=== PATIENT | female | born 1995 | race Hispanic/Latino ===

== ENCOUNTER 2018-03-09 23:07 | Emergency (ER) | payer SELFPAY ==
[2018-03-10] MEDS ORDERED: ACETAMINOPHEN 500 MG TAB ONE (00:02)
[2018-03-10 00:45] LABS: Absolute Lymphocytes (CBC) 2.8 K/uL (0.7-4.9); Absolute Monocytes 0.5 K/uL (0.1-1.3); Absolute Neutrophil 3.3 K/uL (1.8-8.0); Basophils % 0.5 % (0-1.3); Hematocrit 40.5 % (36.0-45.0); Lymphocytes % 40.5 % (15.3-44.8); MCH 27.9 pg (27.0-35.0); MCV 85.1 fL (80-100); MPV 8.2 fL (7.6-11.3); Monocytes % 7.6 % (3.3-12.3); RBC Red Blood Cell Count 4.76 M/uL (3.86-4.86)
[2018-03-10 01:06] LABS: BUN Blood Urea Nitrogen 9 mg/dL (7-18); Bicarbonate 27 mmol/L (21-32); Glucose Level 93 mg/dL (74-106); HCG, Quantitative 536 mIU/mL (1-3); Sodium Level 140 mmol/L (136-145)
[2018-03-10 02:10] LABS: Urine Blood NEGATIVE (NEG); Urine Glucose NEGATIVE (NEG); Urine Protein NEGATIVE (NEG)
[2018-03-10 02:14] LABS: Urine Bacteria <20 /HPF (<20); Urine Culture Reflex Order NOT NEEDED; Urine RBC NONE SEEN /HPF (NONE SEEN)
--- NOTE | 2018-03-10 03:04 | ER ---
Nurse's Notes [facility] Name: Alona Redding Age: 23 yrs Sex: Female : 1995 Arrival Date: 03/09/2018 Time: 23:21 Bed 18 Private MD: Diagnosis: Left Adnexa Corpus Luteum Cyst;Left pelvic pain;positive Presentation: 03/09 23:32 Presenting complaint: Patient states: "I had this sharp pain in my stomach on Monday bs1 and I went to the clinic today and they told me I was and I told them I was having this pain and they told me if it continues to go to the ER, the pain is still there and its only on the left side.". Transition of care: patient was not received from another setting of care. Onset of symptoms was March 04, 2018. Risk Assessment: Do you want to hurt yourself or someone else? Patient reports no desire to harm self or others. Initial Sepsis Screen: Does the patient meet any 2 criteria? No. Patient's initial sepsis screen is negative. Does the patient have a suspected source of infection? No. Patient's initial sepsis screen is negative. Care prior to arrival: None. 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 - Social history:: Smoking status: Patient/guardian denies using tobacco. - Ebola Screening: : Patient negative for fever greater than or equal to 101.5 degrees Fahrenheit, and additional compatible Ebola Virus Disease symptoms Patient denies exposure to infectious person. - Family history:: not pertinent. - Hospitalizations: : No recent hospitalization is reported. Screenin/30 00:49 Abuse screen: Denies threats or abuse. Denies injuries from another. Nutritional bs1 screening: No deficits noted. Tuberculosis screening: No symptoms or risk factors identified. Fall Risk None identified. Assessment: 03/09 23:35 General: Appears in no apparent distress. uncomfortable, well groomed, well developed, bs1 Behavior is calm, cooperative, appropriate for age. Pain: Complains of pain in left lower abdomen Pain does not radiate. Neuro: Level of Consciousness is awake, alert, obeys commands, Oriented to person, place, time, situation, Appropriate for age. Cardiovascular: Denies chest pain, shortness of breath, Heart tones S1 S2 present Capillary refill < 3 seconds Patient's skin is warm and dry. Respiratory: Airway is patent Trachea midline Respiratory effort is even, unlabored, Respiratory pattern is regular, symmetrical, Breath sounds are clear bilaterally. GI: Abdomen is round non-distended, Bowel sounds present X 4 quads. Abdomen is tender to palpation in left lower quadrant Reports lower abdominal pain, nausea. GI: Reports Patient reports sharp abdominal pain. : No signs and/or symptoms were reported regarding the genitourinary system. EENT: No signs and/or symptoms were reported regarding the EENT system. Derm: Skin is intact, Skin is pink, warm \\T\\ dry. normal. Musculoskeletal: Circulation, motion, and sensation intact. Capillary refill < 3 seconds, Range of motion: intact in all extremities. 03/10 00:45 Reassessment: Patient appears in no apparent distress at this time. Patient and/or bs1 family updated on plan of care and expected duration. Pain level reassessed. Patient is alert, oriented x 3, equal unlabored respirations, skin warm/dry/pink. Family at bedside. 02:00 Reassessment: Patient appears in no apparent distress at this time. Patient and/or bs1 family updated on plan of care and expected duration. Pain level reassessed. Patient is alert, oriented x 3, equal unlabored respirations, skin warm/dry/pink. Pending results. No further needs at this time. 03:10 Reassessment: Patient appears in no apparent distress at this time. Patient and/or bs1 family updated on plan of care and expected duration. Pain level reassessed. Patient is alert, oriented x 3, equal unlabored respirations, skin warm/dry/pink. Patient denies pain at this time. Vital Signs: 03/09 23:35 BP 103 / 58; Pulse 78; Resp 18; Temp 98(O); Pulse Ox 100% on R/A; Weight 62.14 kg; bs1 Height 5 ft. 3 in. (160.02 cm); Pain 7/10; 03/10 00:35 BP 137 / 74; Pulse 74; Resp 17 S; Pulse Ox 100% on R/A; bs1 01:35 BP 115 / 58; Pulse 63; Resp 16 S; Pulse Ox 100% on R/A; bs1 02:30 BP 106 / 65; Pulse 63; Resp 16 S; Pulse Ox 100% on R/A; bs1 03:25 BP 121 / 80; Pulse 79; Resp 16 S; Temp 98; Pulse Ox 100% on R/A; Pain 0/10; bs1 03/09 23:35 Body Mass Index 24.27 (62.14 kg, 160.02 cm) bs1 ED Course: 03/09 23:21 Patient arrived in ED. es 23:32 Maida Cooper, RN is Primary Nurse. bs1 23:34 Triage completed. bs1 23:40 Torey Giraldo MD is Attending Physician. [place] 03/10 00:19 Inserted saline lock: 22 gauge in right antecubital area, using aseptic technique. bs1 Blood collected. 00:49 Patient has correct armband on for positive identification. Placed in gown. Bed in low bs1 position. Call light in reach. Side rails up X 1. Pulse ox on. NIBP on. 00:49 Arm band placed on left wrist. bs1 01:28 Transvaginal OB In Process Unspecified. EDGA 01:28 Ultrasound completed. Patient tolerated well. aa4 03:02 Claudia Pope MD is Referral Physician. wa 03:26 No provider procedures requiring assistance completed. IV discontinued, bleeding bs1 controlled, No redness/swelling at site. Pressure dressing applied. Administered Medications: 00:02 Drug: Tylenol 1000 mg Route: PO; bs1 00:47 Follow up: Response: No adverse reaction bs1 Outcome: 03:03 Discharge ordered by . wa 03:26 Discharged to home ambulatory, with significant other. bs1 03:26 Condition: stable 03:26 Discharge instructions given to patient, Instructed on discharge instructions, follow up and referral plans. Demonstrated understanding of instructions, follow-up care. 03:29 Patient left the ED. bs1 Signatures: Dispatcher [employer] EDGA Leia Arzate Amanda aa4 Torey Giraldo MD MD wa Salazar, Brittany, RN RN bs1
--- NOTE | 2018-03-10 03:04 | EDPHYS ---
Physician Documentation [facility] Name: Alona Redding Age: 23 yrs Sex: Female : 1995 Arrival Date: 03/09/2018 Time: 23:21 Bed 18 Private MD: ED Physician Torey Giraldo HPI: 03/10 02:12 This 23 yrs old Female presents to ER via Ambulatory with complaints of wa Abdominal Pain, 5 weks preg. 02:12 The patient presents with abdominal pain L side abd pain. states found out she was wa today. wants checked as L side pelvic pain that radiates to the L pelvis region. Home preg positive. Onset: The symptoms/episode began/occurred yesterday. The symptoms do not radiate. Associated signs and symptoms: Pertinent negatives: nausea and vomiting, constipation, diarrhea, dysuria, fever, vaginal discharge. The symptoms are described as achy. Modifying factors: The symptoms are alleviated by nothing, the symptoms are aggravated by nothing. Severity of pain: At its worst the pain was moderate in the emergency department the pain is unchanged. The patient has not experienced similar symptoms in the past. The patient has not recently seen a physician. 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 - Social history:: Smoking status: Patient/guardian denies using tobacco. - Ebola Screening: : Patient negative for fever greater than or equal to 101.5 degrees Fahrenheit, and additional compatible Ebola Virus Disease symptoms Patient denies exposure to infectious person. - Family history:: not pertinent. - Hospitalizations: : No recent hospitalization is reported. ROS: 03/10 02:38 Constitutional: Negative for fever, chills, and weight loss, Eyes: Negative for injury, wa pain, redness, and discharge, ENT: Negative for injury, pain, and discharge, Neck: Negative for injury, pain, and swelling, Cardiovascular: Negative for chest pain, palpitations, and edema, Respiratory: Negative for shortness of breath, cough, wheezing, and pleuritic chest pain, Back: Negative for injury and pain, MS/Extremity: Negative for injury and deformity, Skin: Negative for injury, rash, and discoloration, Neuro: Negative for headache, weakness, numbness, tingling, and seizure, Psych: Negative for depression, anxiety, suicide ideation, homicidal ideation, and hallucinations. Abdomen/GI: Positive for abdominal pain, Negative for nausea and vomiting. : Positive for pelvic pain, of the left lower quadrant. Exam: 02:39 Constitutional: This is a well developed, well nourished patient who is awake, alert, wa and in no acute distress. Head/Face: Normocephalic, atraumatic. Eyes: Pupils equal round and reactive to light, extra-ocular motions intact. Lids and lashes normal. Conjunctiva and sclera are non-icteric and not injected. Cornea within normal limits. Periorbital areas with no swelling, redness, or edema. ENT: Nares patent. No nasal discharge, no septal abnormalities noted. Tympanic membranes are normal and external auditory canals are clear. Oropharynx with no redness, swelling, or masses, exudates, or evidence of obstruction, uvula midline. Mucous membranes moist. Neck: Trachea midline, no thyromegaly or masses palpated, and no cervical lymphadenopathy. Supple, full range of motion without nuchal rigidity, or vertebral point tenderness. No Meningismus. Cardiovascular: Regular rate and rhythm with a normal S1 and S2. No gallops, murmurs, or rubs. Normal PMI, no JVD. No pulse deficits. Respiratory: Lungs have equal breath sounds bilaterally, clear to auscultation and percussion. No rales, rhonchi or wheezes noted. No increased work of breathing, no retractions or nasal flaring. Back: No spinal tenderness. No costovertebral tenderness. Full range of motion. Skin: Warm, dry with normal turgor. Normal color with no rashes, no lesions, and no evidence of cellulitis. MS/ Extremity: Pulses equal, no cyanosis. Neurovascular intact. Full, normal range of motion. Neuro: Awake and alert, GCS 15, oriented to person, place, time, and situation. Cranial nerves II-XII grossly intact. Motor strength 5/5 in all extremities. Sensory grossly intact. Cerebellar exam normal. Normal gait. Psych: Awake, alert, with orientation to person, place and time. Behavior, mood, and affect are within normal limits. 02:39 Abdomen/GI: Inspection: abdomen appears normal, Bowel sounds: normal, in all quadrants, Palpation: soft, mild abdominal tenderness, in the left lower quadrant. Vital Signs: 03/09 23:35 BP 103 / 58; Pulse 78; Resp 18; Temp 98(O); Pulse Ox 100% on R/A; Weight 62.14 kg; bs1 Height 5 ft. 3 in. (160.02 cm); Pain 7/10; 03/10 00:35 BP 137 / 74; Pulse 74; Resp 17 S; Pulse Ox 100% on R/A; bs1 01:35 BP 115 / 58; Pulse 63; Resp 16 S; Pulse Ox 100% on R/A; bs1 02:30 BP 106 / 65; Pulse 63; Resp 16 S; Pulse Ox 100% on R/A; bs1 03:25 BP 121 / 80; Pulse 79; Resp 16 S; Temp 98; Pulse Ox 100% on R/A; Pain 0/10; bs1 03/09 23:35 Body Mass Index 24.27 (62.14 kg, 160.02 cm) bs1 MDM: 03/09 23:40 Patient medically screened. md 03/10 02:40 Differential diagnosis: positive home preg w/ L adnexal pain. r/o ectopic. md 02:58 Data reviewed: vital signs, nurses notes, lab test result(s). Test interpretation: by md ED physician or midlevel provider: [facility] [place]. corpus luteum cyst L ovary. no gestational sac. ABO: Bpos. Response to treatment: the patient's symptoms have markedly improved after treatment. ED course: will d/c with close f/u. needs 48 hour eval for viability. pain L adnexa may be related to corpus luteum cyst. 03/09 23:57 Order name: Abo/rh Typing; Complete Time: 02:11 03/09 23:57 Order name: Basic Metabolic Panel; Complete Time: 02:11 03/09 23:57 Order name: CBC with Diff; Complete Time: 02:11 03/09 23:57 Order name: Quantitative Hcg; Complete Time: 02:11 03/09 23:57 Order name: Urine Microscopic Only; Complete Time: 02:41 03/09 23:59 Order name: Urine Dipstick--Ancillary (enter results) 03/09 23:57 Order name: Urine Test (obtain specimen); Complete Time: 23:59 md 03/09 23:57 Order name: IV Saline Lock; Complete Time: 00:47 md 03/09 23:57 Order name: Labs collected and sent; Complete Time: 00:50 md 03/09 23:57 Order name: NPO; Complete Time: 23:58 md 03/09 23:59 Order name: Urine --Ancillary (enter results) 03/10 01:20 Order name: Transvaginal OB [facility] 03/09 23:57 Order name: Urine Dipstick-Ancillary (obtain specimen); Complete Time: 23:59 md Administered Medications: 00:02 Drug: Tylenol 1000 mg Route: PO; bs1 00:47 Follow up: Response: No adverse reaction bs1 Disposition: 03/10/18 03:03 Discharged to Home. Impression: Left Adnexa Corpus Luteum Cyst, Left pelvic pain, positive . - Condition is Stable. - Discharge Instructions: Pelvic Pain, Female, [id number], Ovarian Cyst, [id number]-[id number]. - Medication Reconciliation Form, Thank You Letter, Antibiotic Education, Prescription Opioid Use form. - Follow up: Claudia Pope MD; When: 48 Hours; Reason: Recheck today's complaints. - Problem is new. - Symptoms have improved. - Notes: follow up with the OB docyor within 48 hours to check for appropriate doubling of hormone which may signify normal . return to ER for severe pain and or bleedign immediately. take tylenol as needed for pain Signatures: Dispatcher [employer] [facility] Torey Giraldo MD MD wa Salazar, Brittany, RN RN bs1 Corrections: (The following items were deleted from the chart) 01:20 03/09 23:57 OB Complete+.ANALY ordered. [facility] 03/10 03:29 03:03 03/10/2018 03:03 Discharged to Home. Impression: Left Adnexa Corpus Luteum Cyst; bs1 Left pelvic pain; positive . Condition is Stable. Forms are Medication Reconciliation Form, Thank You Letter, Antibiotic Education, Prescription Opioid Use. Follow up: Claudia Pope; When: 48 Hours; Reason: Recheck today's complaints. Problem is new. Symptoms have improved. wa
[2018-03-10 03:43] VITALS: TEMP 98; O2SAT 100
[2018-03-10 03:47] VITALS: BP 121/80
--- NOTE | 2018-03-10 09:35 | RAD REPORT ---
EXAM DESCRIPTION: US - Transvaginal OB - 03/10/2018 1:28 am CLINICAL HISTORY: Left-sided pelvic pain, beta HCG 536 COMPARISON: None. FINDINGS: Tip of the cervix is not optimally visualized. Uterus is in a retroflexed or retroverted p osition measuring 8.5 x 4.9 x 6.3 cm. A 4.4 centimeter oval hypoechoic mass lower uterus is most like ly an incidental fibroid. . No intrauterine gestational sac or sac remnant identifiable. Endometrium is 15 mm in thickness. Endometrium-myometrium interface is preserved. Trace amount of free fluid in the cul-de-sac is within physiologic limits. Right ovary is 3.1 x 1.1 x 0.9 cm left ovary is 3.5 x 1.5 x 1.7 cm. Doppler evaluation shows normal blood flow within the ovari an stroma. No suspicious ovarian or adnexal finding. IMPRESSION: No intrauterine gestational sac or sac remnant identifiable. No adnexal abnormality to suspect ectopic . Follow-up sonography could be performed if there is continued pain or bleeding and evidence for progr essive . Approximately 4.4 centimeter mass at the lower uterus is probably a fibroid. This can be monitored on subsequent imaging as well.
== END 2018-03-10 03:29 | disposition home or self-care (01) ==
LOC: ER 23:07
DX: O26.891 Other specified pregnancy related conditions, first trimester (principal); N83.12 Corpus luteum cyst of left ovary; Z3A.01 Less than 8 weeks gestation of pregnancy
CPT/HCPCS: 36415; 76817; 80048; 81003; 81015; 81025; 84702; 85025; 86900; 86901; 99284

== ENCOUNTER 2018-05-21 04:24 | Emergency (ER) | payer BC ==
[2018-05-21] MEDS ORDERED: NA CHLORIDE 0.9% 1,000 ML ONE (05:19)
[2018-05-21 05:47] LABS: Urine Blood NEGATIVE (NEG); Urine Glucose NEGATIVE (NEG); Urine Protein NEGATIVE (NEG); Urine Specific Gravity 1.015 (1.005-1.030)
[2018-05-21 06:00] LABS: Absolute Lymphocytes (CBC) 1.7 K/uL (0.7-4.9); Absolute Monocytes 0.7 K/uL (0.1-1.3); Basophils % 0.4 % (0-1.3); Eosinophils % 3.4 % (0-4.4); Hematocrit 37.1 % (36.0-45.0); Lymphocytes % 17.6 % (15.3-44.8); MCH 29.4 pg (27.0-35.0); MCV 84.4 fL (80-100); Monocytes % 6.9 % (3.3-12.3)
[2018-05-21 06:14] LABS: ALT/SGPT 15 U/L (12-78); AST/SGOT 13 U/L (15-37); Albumin 3.1 g/dL (3.4-5.0); Alkaline Phosphatase 62 U/L (45-117); Amylase Level 46 U/L (25-115); BUN Blood Urea Nitrogen 5 mg/dL (7-18); Bicarbonate 24 mmol/L (21-32); Bilirubin Direct < 0.1 mg/dL (0-0.2); Bilirubin Total 0.3 mg/dL (0.2-1.0); Glucose Level 94 mg/dL (74-106); Lipase 175 U/L (73-393); Potassium 3.6 mmol/L (3.5-5.1); Protein, Total 7.7 g/dL (6.4-8.2); Sodium Level 136 mmol/L (136-145)
[2018-05-21 06:16] LABS: Urine Amorphous Sediment 3+ /HPF (NONE SEEN); Urine Bacteria <20 /HPF (<20); Urine Culture Reflex Order NOT NEEDED; Urine RBC NONE SEEN /HPF (NONE SEEN)
--- NOTE | 2018-05-21 07:07 | RAD REPORT ---
EXAM DESCRIPTION: US - OB Limited - 05/21/2018 6:56 am CLINICAL HISTORY: , abdominal and pelvic pain COMPARISON: Ultrasound March 10 FINDINGS: A single intrauterine gestation is identified. [place]-rump length measurement corresponds t o 15 weeks 6 day age. Anatomic assessment is limited at this age. No gross anatomic abnormality seen. Cervical canal is long and closed. heart rate is 155 BPM. Within the endometrial cavity there is no hematoma, mass or suspicious finding. In the mid to lower anterior right uterus there is an exophytic solid hypoechoic mass. This measures 6 cm in maximum dimension on the current examination. The mass was measured 4.4 cm on the February examin ation. This is most likely a uterine fibroid that has responded to or mounds. No other maternal adnexal mass or abnormality seen. Ovaries are not well defined. No free fluid in th e pelvis. IMPRESSION: Single 15 week 6 day IUP with normal heart rate. No gross anatomic abnormality at this e costa age. Anterior exophytic uterine mass 6.1 cm in size has increased from 4.4 cm seen on the February study. This is most likely a uterine fibroid that has grown from hormone stimulation.
--- NOTE | 2018-05-21 07:10 | ER ---
Nurse's Notes [facility] Name: Alona Humphries Age: 23 yrs Sex: Female : 1995 Arrival Date: 05/21/2018 Time: 04:27 Bed 7 Private MD: Diagnosis: Right lower quadrant pain. 2 nd Trimester . Uterine fibroid Presentation: 05/21 04:37 Presenting complaint: Patient states: RLQ PAIN INTERMITTENT x2 MONTHS. Transition of bp care: patient was not received from another setting of care. Onset of symptoms was May 20, 2018 at 23:00. Risk Assessment: Do you want to hurt yourself or someone else? Patient reports no desire to harm self or others. Initial Sepsis Screen: Does the patient meet any 2 criteria? No. Patient's initial sepsis screen is negative. Does the patient have a suspected source of infection? No. Patient's initial sepsis screen is negative. Care prior to arrival: None. 04:37 Method Of Arrival: Ambulatory bp 04:37 Acuity: PETE 3 bp Triage Assessment: 04:39 General: Appears in no apparent distress. uncomfortable, Behavior is calm, cooperative, bp appropriate for age. Pain: Complains of pain in right lower quadrant. EENT: No deficits noted. Neuro: Level of Consciousness is awake, alert, obeys commands, Oriented to person, place, time, situation, Appropriate for age. Cardiovascular: No deficits noted. Respiratory: Airway is patent Respiratory effort is even, unlabored, Respiratory pattern is regular, symmetrical. GI: Patient currently denies diarrhea, nausea, vomiting. : Reports burning with urination. Derm: No deficits noted. Musculoskeletal: Circulation, motion, and sensation intact. Range of motion: intact in all extremities. 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 - Social history:: Smoking status: Patient/guardian denies using tobacco. - Ebola Screening: : Patient negative for fever greater than or equal to 101.5 degrees Fahrenheit, and additional compatible Ebola Virus Disease symptoms Patient denies exposure to infectious person Patient denies travel to an Ebola-affected area in the 21 days before illness onset No symptoms or risks identified at this time. Screenin:42 Abuse screen: Denies threats or abuse. Denies injuries from another. Nutritional bp screening: No deficits noted. Tuberculosis screening: No symptoms or risk factors identified. Fall Risk None identified. Assessment: 04:42 General: SEE TRIAGE ASSESSMENT. 23YO HF, 16WK , C/O INTERMITTENT RLQ PAIN x2 bp MONTHS, WORSE WITH URINATION. DENIES NAUSEA, VOMITING, DIARRHEA OR VAGINAL BLEEDING. 06:00 Reassessment: UNABLE TO OBTAIN FHT, NOTIFIED. U/S PENDING. bp 07:22 Reassessment: Patient appears in no apparent distress at this time. Patient and/or tw2 family updated on plan of care and expected duration. Pain level reassessed. Patient is alert, oriented x 3, equal unlabored respirations, skin warm/dry/pink. 07:22 GI: Bowel sounds present X 4 quads. Abd is soft. tw2 Vital Signs: 04:39 BP 106 / 69; Pulse 90; Resp 16; Temp 97.2; Pulse Ox 98% ; Weight 61.69 kg; Height 5 ft. bp 3 in. (160.02 cm); 05:30 BP 104 / 68; Pulse 78; Resp 14; Pulse Ox 100% ; bp 06:30 BP 110 / 65; Pulse 81; Resp 14; Pulse Ox 100% ; bp 04:39 Body Mass Index 24.09 (61.69 kg, 160.02 cm) bp ED Course: 04:27 Patient arrived in ED. es 04:37 Jeffrey Tyson, RN is Primary Nurse. bp 04:38 Triage completed. bp 04:39 Arm band placed on. bp 04:42 Patient has correct armband on for positive identification. Bed in low position. Call bp light in reach. Side rails up X2. Adult w/ patient. 05:00 Joshua Khan MD is Attending Physician. pkl 05:40 Inserted saline lock: 20 gauge in right forearm, using aseptic technique. Blood bp collected. 06:55 Ultrasound completed. Patient tolerated well. aa4 06:57 OB Limited In Process Unspecified. EDMS 07:07 Claudia Pope MD is Referral Physician. pkl 07:22 No provider procedures requiring assistance completed. IV discontinued, intact, tw2 bleeding controlled, No redness/swelling at site. Pressure dressing applied. Administered Medications: 05:13 CANCELLED (Patient Refused): NS 0.9% 1000 ml IV at 1000 ml once pkl 05:30 Drug: NS 0.9% 1000 ml Route: IV; Rate: 1000 ml; Site: right forearm; bp 07:00 Follow up: Response: No adverse reaction; IV Status: Completed infusion; IV Intake: tw2 1000ml 06:11 Drug: NS 0.9% 1000 ml Route: IV; Rate: 100 ml/hr; Site: right forearm; bp 07:11 Follow up: Response: No adverse reaction; IV Status: Completed infusion; IV Intake: tw2 1000ml Intake: 07:00 IV: 1000ml; Total: 1000ml. tw2 07:11 IV: 1000ml; Total: 2000ml. tw2 Outcome: 07:09 Discharge ordered by . pknikita 07:22 Discharged to home ambulatory. tw2 07:22 Condition: stable 07:22 Discharge instructions given to patient, Instructed on discharge instructions, follow up and referral plans. Demonstrated understanding of instructions, follow-up care. 07:23 Patient left the ED. tw2 Signatures: Dispatcher [employer] Joshua Steven MD MD pkl Leia Arzate Amanda aa4 Daniella Lewis RN RN tw2 Jeffrey Tyson RN RN bp
--- NOTE | 2018-05-21 07:10 | EDPHYS ---
Physician Documentation [facility] Name: Alona Humphries Age: 23 yrs Sex: Female : 1995 Arrival Date: 05/21/2018 Time: 04:27 Bed 7 Private MD: ED Physician Joshua Khan HPI: 05/21 05:14 This 23 yrs old Female presents to ER via Ambulatory with complaints of pkl Abdominal Pain, 5 MONTHS PREG. 05:14 The patient presents with abdominal pain right lower quadrant. Onset: The pkl symptoms/episode began/occurred 2 day(s) ago, and became worse last night. Associated signs and symptoms: Pertinent positives: nausea. [employer]: 04:39 LMP 01/30/2018 bp Historical: - Allergies: 04:39 No Known Allergies; bp - Home Meds: 04:39 Vitamin Oral tab 1 tab once daily [Active]; bp - PMHx: 04:39 GALLSTONES; UTERINE FIBROIDS; bp - Immunization history:: Adult Immunizations up to date. - Social history:: Smoking status: Patient/guardian denies using tobacco. - Ebola Screening: : Patient negative for fever greater than or equal to 101.5 degrees Fahrenheit, and additional compatible Ebola Virus Disease symptoms Patient denies exposure to infectious person Patient denies travel to an Ebola-affected area in the 21 days before illness onset No symptoms or risks identified at this time. ROS: 05:14 Eyes: Negative for injury, pain, redness, and discharge, ENT: Negative for injury, pkl pain, and discharge, Neck: Negative for injury, pain, and swelling, Cardiovascular: Negative for chest pain, palpitations, and edema, Respiratory: Negative for shortness of breath, cough, wheezing, and pleuritic chest pain. 05:14 Abdomen/GI: Positive for abdominal pain, nausea, of the right lower quadrant. 05:14 Back: Negative for acute changes. 05:14 : Positive for urinary symptoms, burning with urination. 05:14 MS/extremity: Negative for acute changes. 05:14 Skin: Negative for rash. 05:14 Neuro: Negative for altered mental status. Exam: 05:14 Head/Face: Normocephalic, atraumatic. Eyes: Pupils equal round and reactive to light, pkl extra-ocular motions intact. Lids and lashes normal. Conjunctiva and sclera are non-icteric and not injected. Cornea within normal limits. Periorbital areas with no swelling, redness, or edema. ENT: Nares patent. No nasal discharge, no septal abnormalities noted. Tympanic membranes are normal and external auditory canals are clear. Oropharynx with no redness, swelling, or masses, exudates, or evidence of obstruction, uvula midline. Mucous membranes moist. Neck: Trachea midline, no thyromegaly or masses palpated, and no cervical lymphadenopathy. Supple, full range of motion without nuchal rigidity, or vertebral point tenderness. No Meningismus. Chest/axilla: Normal chest wall appearance and motion. Nontender with no deformity. No lesions are appreciated. Cardiovascular: Regular rate and rhythm with a normal S1 and S2. No gallops, murmurs, or rubs. Normal PMI, no JVD. No pulse deficits. Respiratory: Lungs have equal breath sounds bilaterally, clear to auscultation and percussion. No rales, rhonchi or wheezes noted. No increased work of breathing, no retractions or nasal flaring. 05:14 Abdomen/GI: Inspection: gravid appearance, is noted, Bowel sounds: normal, Palpation: moderate abdominal tenderness, in the right lower quadrant. 05:14 Back: Exam negative for acute changes. 05:14 : Exam negative for acute changes. 05:14 Musculoskeletal/extremity: Exam is negative for acute changes. 05:14 Skin: Exam negative for rash. 05:14 Neuro: Orientation: is normal, Mentation: is normal, Cranial nerves: grossly normal, Motor: is normal. Vital Signs: 04:39 BP 106 / 69; Pulse 90; Resp 16; Temp 97.2; Pulse Ox 98% ; Weight 61.69 kg; Height 5 ft. bp 3 in. (160.02 cm); 05:30 BP 104 / 68; Pulse 78; Resp 14; Pulse Ox 100% ; bp 06:30 BP 110 / 65; Pulse 81; Resp 14; Pulse Ox 100% ; bp 04:39 Body Mass Index 24.09 (61.69 kg, 160.02 cm) bp MDM: 05:00 Patient medically screened. pkl 07:04 Data reviewed: vital signs, nurses notes, lab test result(s), radiologic studies, pkl ultrasound. 07:04 ED course: Talked to Dr. Franklin, will see patient in her office today at 2 P.M. pkl Discussed lab. and US with Dr. Franklin and patient.. 05/21 05:11 Order name: Amylase, Serum; Complete Time: 06:15 pkl 05/21 05:11 Order name: Basic Metabolic Panel; Complete Time: 06:15 pkl 05/21 05:11 Order name: CBC with Diff; Complete Time: 06:04 pkl 05/21 05:11 Order name: Creatinine for Radiology; Complete Time: 06:12 pkl 05/21 05:11 Order name: Hepatic Function; Complete Time: 06:15 pkl 05/21 05:11 Order name: Lipase; Complete Time: 06:15 pkl 05/21 05:11 Order name: Heart Tones; Complete Time: 06:06 pkl 05/21 05:11 Order name: Urine Microscopic Only; Complete Time: 06:44 pkl 05/21 05:45 Order name: Urine Dipstick--Ancillary (enter results); Complete Time: 05:49 mw2 05/21 06:56 Order name: OB Limited EDMS 05/21 05:11 Order name: IV Saline Lock; Complete Time: 06:06 pkl 05/21 05:11 Order name: Labs collected and sent; Complete Time: 06:06 pkl 05/21 05:11 Order name: Urine Dipstick-Ancillary (obtain specimen); Complete Time: 06:06 pkl Administered Medications: 05:13 CANCELLED (Patient Refused): NS 0.9% 1000 ml IV at 1000 ml once pkl 05:30 Drug: NS 0.9% 1000 ml Route: IV; Rate: 1000 ml; Site: right forearm; bp 07:00 Follow up: Response: No adverse reaction; IV Status: Completed infusion; IV Intake: tw2 1000ml 06:11 Drug: NS 0.9% 1000 ml Route: IV; Rate: 100 ml/hr; Site: right forearm; bp 07:11 Follow up: Response: No adverse reaction; IV Status: Completed infusion; IV Intake: tw2 1000ml Disposition: 05/21/18 07:09 Discharged to Home. Impression: Right lower quadrant pain. 2 nd Trimester . Uterine fibroid. - Condition is Stable. - Medication Reconciliation Form, Thank You Letter, Antibiotic Education, Prescription Opioid Use, Family Work Release form. - Follow up: Claudia Pope MD; When: Today; Reason: Re-evaluation by your physician. - Problem is new. - Symptoms are unchanged. Signatures: Dispatcher [employer] [facility] Joshua Khan MD MD pkl Daniella Lewis, RN RN tw2 Jeffrey Tyson, RN RN bp Corrections: (The following items were deleted from the chart) 05:13 05:11 NS 0.9% 1000 ml IV at 1000 ml once ordered. pkl pkl 06:57 06:04 Pelvis Complete+US.RAD.BRZ ordered. [facility] EDDC 07:23 07:09 05/21/2018 07:09 Discharged to Home. Impression: Right lower quadrant pain. 2 nd tw2 Trimester . Uterine fibroid. Condition is Stable. Forms are Medication Reconciliation Form, Thank You Letter, Antibiotic Education, Prescription Opioid Use. Follow up: Claudia Pope; When: Today; Reason: Re-evaluation by your physician. Problem is new. Symptoms are unchanged. pkl
[2018-05-21 07:29] VITALS: TEMP 97.2
[2018-05-21 07:30] VITALS: O2SAT 100
[2018-05-21 07:32] VITALS: BP 110/65
== END 2018-05-21 07:23 | disposition home or self-care (01) ==
LOC: ER 04:24
DX: O34.12 Maternal care for benign tumor of corpus uteri, second trimester (principal); D25.9 Leiomyoma of uterus, unspecified; R10.31 Right lower quadrant pain
CPT/HCPCS: 36415; 76815; 80048; 80076; 81003; 81015; 82150; 83690; 85025; 96360; 96361; 99284; J7030

== ENCOUNTER 2018-10-31 06:01 | Inpatient (IN) | payer BC ==
[2018-10-31] MEDS ORDERED: Ringers Lactate 1,000 ML IV PRN (06:25)
[2018-10-31] MEDS ORDERED: CARBOPROST TROME 250 MCG/ML IM PRN (06:25)
[2018-10-31] MEDS ORDERED: METHYLERGONOVINE 0.2MG/ML AMP IM PRN (06:25)
[2018-10-31 06:57] LABS: RPR Titer ND
[2018-10-31] MEDS ORDERED: Ringers Lactate 1,000 ML IV SCH (07:00)
[2018-10-31] MEDS ORDERED: OXYTOCIN/LR 20 UNIT/1,000 ML BAG IV SCH (07:00)
[2018-10-31 07:08] LABS: Absolute Lymphocytes (CBC) 1.8 K/uL (0.7-4.9); Absolute Monocytes 0.4 K/uL (0.1-1.3); Absolute Neutrophil 3.6 K/uL (1.8-8.0); Basophils % 0.6 % (0-1.3); Eosinophils % 2.2 % (0-4.4); Hematocrit 39.9 % (36.0-45.0); Lymphocytes % 29.7 % (15.3-44.8); MPV 9.4 fL (7.6-11.3); Monocytes % 7.3 % (3.3-12.3); RBC Red Blood Cell Count 4.61 M/uL (3.86-4.86)
[2018-10-31 07:16] VITALS: BMI 30.4
[2018-10-31 08:27] LABS: Urine Appearance CLEAR; Urine Bilirubin NEGATIVE (NEG); Urine Blood NEGATIVE (NEG); Urine Color YELLOW; Urine Glucose NEGATIVE (NEG); Urine Protein NEGATIVE (NEG); Urine Specific Gravity 1.015 (1.005-1.030); Urine Urobilinogen 0.2 mg/dL (0.2-1.0); Urine pH 7.5 (5.0-7.0)
[2018-10-31 08:53] LABS: Urine Bacteria <20 /HPF (<20); Urine Culture Reflex Order REFLEXED; Urine RBC <5 /HPF (NONE SEEN)
[2018-10-31] MEDS ORDERED: FENTANYL CITR 100 MCG/2 ML IV ONE (10:36)
[2018-10-31] MEDS ORDERED: BUPIVACAINE 0.25% PF 10 ML VIAL IV ONE (10:37)
[2018-10-31] MEDS ORDERED: FENTANYL/BUPIVACAINE/NS/PF 200 MCG/100 ML BAG EP ONE (10:37)
[2018-10-31] MEDS ORDERED: BUPIVACAINE 0.25% PF 10 ML VIAL ONE (11:32)
[2018-10-31] MEDS ORDERED: LIDOCAINE 1% MPF 30 ML VIAL ONE (13:51)
[2018-10-31] MEDS ORDERED: DOCUSATE NA/SENNA CONC 1 TAB PO PRN (16:01)
[2018-10-31] MEDS ORDERED: IBUPROFEN 200 MG TAB PO PRN (16:01)
[2018-10-31] MEDS ORDERED: METHYLERGONOVINE 0.2 MG TAB PO PRN (16:01)
[2018-10-31] MEDS ORDERED: BISACODYL 10 MG RECTAL SUPP RECT PRN (16:01)
[2018-10-31] MEDS ORDERED: ACETAMINOPHEN 500 MG TAB PO PRN (16:01)
[2018-10-31] MEDS ORDERED: ONDANSETRON 4 MG (ODT) TAB PO PRN (16:01)
[2018-10-31] MEDS ORDERED: Oxycodone HCl/Acetaminophen 1 TAB TAB PO PRN (16:01)
--- NOTE | 2018-10-31 16:02 | P.OP ---
Date of Service: 10/31/18 Findings and Operative Technique Patient delivered a viable male in cephalic presentation on 10/31/18 at 15 :12. Once infant was delivered the nose and mouth were suctioned with a suction bulb and cord was clamped and cut and was placed on mother's abdomen for skin to skin bonding. Cord blood was then obtained. Attention was then turned to the placenta which was delivered with gentle traction at 15:13. Placenta was inspected and was noted to be intact. Perineum was then examined and was noted to have a second degree laceration and a vaginal hematoma was noted on the right perineum. Hematoma was evacuated and suture ligated. Hemostasis was obtained. EBL was estimated to be 400cc. APGARS were assigned at 1 and 5 minutes and were 9/9. Weight was found to be 7 lbs 4 ounces. First stage of labor was 7 hours and 10 minutes. Second stage was 2 minutes. Both mom and baby are doing well. Hematocrt will be ordered. Ice will be placed on the perineum. Mom plans to breast feed.
[2018-10-31 23:32] LABS: RPR (Rapid Plasma Reagin) NON-REACT (NON-REACT)
--- NOTE | 2018-11-01 01:24 | HP ---
Date of Admission: 10/31/2018 History Of Present Illness: Alona is a 23-year-old 3, para 1-0-1-1, who presents at 39 we eks and 3 days' gestation for elective induction of labor. The patient has obtained care wi [facility] beginning at 6 weeks' gestation. The patient has been compliant with all visits. Her care has been complicated by fibroid uterus, and she has been following with [facility] for this i ssue. Her last ultrasound performed with [facility] was on October 29, and no issues were noted. The ultr asound prior to that was done on October 22, at which time the infant was noted to be in cephalic pr esentation. Amniotic fluid index was normal. Estimated weight was 6 pounds 9 ounces. She had noninvasive testing done in this and was low-risk male . She is Rh positiv e. Glucose screen was normal. She did not receive the Tdap vaccine. She states she has some reacti on to it, and she does not wish to have it performed. care was also complicated by diabetes mellitus in her last , and she has been having recurrent pain issues. GBS was negative. S record for further details. Past Medical History: Includes fibroid uterus, history of gestational diabetes. Past Surgical History: Negative. Family History: Includes diabetes, hypertension, anxiety, depression, and asthma. Social History: She is with the father of the baby. Denies tobacco, alcohol, or drug use. Physical Examination: Vital Signs: On admission are blood pressure 100/57, pulse of 72, respirations 18, temperature 98.8, and pain score of 1/10 to 2/10. General: The patient is resting comfortably in bed, a little bit anxious. Head and Neck: Normocephalic, atraumatic. Neck is supple. Respirations: Symmetric, nonlabored breathing. Heart: Regular rate and rhythm. Abdomen: Gravid. Extremities: Bilateral lower extremities; no clubbing, cyanosis, or edema. Vaginal: Normal external female genitalia. Vagina is pink and moist. Cervical: She is 2 cm dilated, 50% effaced, -3 station. Rupture of membranes performed. Clear flui d noted. Assessment And Plan: Alona is a 23-year-old 3, para 1-0-1-1, who presents at 39 weeks and 3 days' gestation for elective induction of labor. Rupture of membranes has been performed. Pitoci n is being started for labor augmentation. The patient to obtain epidural at the patient's request. Continuous maternal monitoring will be performed. KEVIN Voice ID: [id number]
[2018-11-01 04:46] LABS: Absolute Monocytes 0.5 K/uL (0.1-1.3); Absolute Neutrophil 7.6 K/uL (1.8-8.0); Basophils % 0.4 % (0-1.3); Eosinophils % 1.1 % (0-4.4); Hematocrit 39.7 % (36.0-45.0); Lymphocytes % 19.4 % (15.3-44.8); Monocytes % 4.8 % (3.3-12.3); RBC Red Blood Cell Count 4.57 M/uL (3.86-4.86)
[2018-11-01 15:51] VITALS: BP 124/71; TEMP 97.8
--- NOTE | 2018-11-01 17:03 | P.DS ---
Admission Date: 10/31/18 Discharge Date: 11/01/18 Vital Signs/Physical Exam: Temp Pulse Resp BP Pulse Ox 97.8 F 85 16 124/71 11/01/18 15:50 11/01/18 15:50 11/01/18 15:50 11/01/18 15:50 Laboratory Data at Discharge: WBC 10.2 K/uL (4.3-10.9) D 11/01/18 04:22 Hgb 13.3 g/dL (12.0-15.0) 11/01/18 04:22 Hct 39.7 % (36.0-45.0) 11/01/18 04:22 Plt Count 217 K/uL (152-406) 11/01/18 04:22 Home Medications: Pnv95/Ferrous Fumarate/FA [ Vitamin Tablet] 1 each PO DAILY 10/31/18 Followup: Rajendra Pope DO [Family Provider] -
[2018-11-04 04:40] LABS: HBsAG Nonreactive (Nonreactive)
== END 2018-11-01 17:25 | disposition home or self-care (01) | DRG 768 ==
LOC: 2ND-WC 06:01
PROVIDERS: ADMIT Student in an Organized Health Care Education/Training Program; ATTEND Student in an Organized Health Care Education/Training Program
PROC: 10E0XZZ Delivery of Products of Conception, External Approach (ICD-10-PCS; principal; 2018-10-31)
PROC: 0U9G7ZZ Drainage of Vagina, Via Natural or Artificial Opening (ICD-10-PCS; 2018-10-31)
PROC: 0KQM0ZZ Repair Perineum Muscle, Open Approach (ICD-10-PCS; 2018-10-31)
PROC: 10907ZC Drainage of Amniotic Fluid, Therapeutic from Products of Conception, Via Natural or Artificial Opening (ICD-10-PCS; 2018-10-31)
PROC: 3E033VJ Introduction of Other Hormone into Peripheral Vein, Percutaneous Approach (ICD-10-PCS; 2018-10-31)
DX: O34.13 Maternal care for benign tumor of corpus uteri, third trimester (principal); Z37.0 Single live birth; O71.7 Obstetric hematoma of pelvis; D25.9 Leiomyoma of uterus, unspecified; O70.1 Second degree perineal laceration during delivery; Z3A.39 39 weeks gestation of pregnancy
CPT/HCPCS: 36415; 81001; 85025; 86592; 86850; 86900; 86901; 87086; 87088; 87340; J2210; J2590; J3010

== ENCOUNTER 2018-12-09 13:44 | Observation (INO) | payer BC ==
[2018-12-09] MEDS ORDERED: ONDANSETRON 4 MG/2 ML VIAL ONE (14:21)
[2018-12-09] MEDS ORDERED: FENTANYL CITR 100 MCG/2 ML ONE (14:21)
[2018-12-09] MEDS ORDERED: NA CHLORIDE 0.9% 1,000 ML ONE (14:22)
[2018-12-09 14:33] LABS: Absolute Monocytes 0.6 K/uL (0.1-1.3); Absolute Neutrophil 3.5 K/uL (1.8-8.0); Basophils % 0.9 % (0-1.3); Eosinophils % 4.3 % (0-4.4); Hematocrit 44.4 % (36.0-45.0); Lymphocytes % 40.2 % (15.3-44.8); MPV 7.8 fL (7.6-11.3); Monocytes % 7.7 % (3.3-12.3); RBC Red Blood Cell Count 5.15 M/uL (3.86-4.86)
[2018-12-09 14:47] LABS: ALT/SGPT 120 U/L (12-78); AST/SGOT 63 U/L (15-37); Albumin 3.7 g/dL (3.4-5.0); Alkaline Phosphatase 137 U/L (45-117); BUN Blood Urea Nitrogen 10 mg/dL (7-18); Bicarbonate 29 mmol/L (21-32); Bilirubin Direct 0.1 mg/dL (0-0.2); Bilirubin Total 0.3 mg/dL (0.2-1.0); Glucose Level 103 mg/dL (74-106); Lipase 234 U/L (73-393); Potassium 3.6 mmol/L (3.5-5.1); Protein, Total 8.2 g/dL (6.4-8.2); Sodium Level 142 mmol/L (136-145)
--- NOTE | 2018-12-09 15:09 | ER ---
Nurse's Notes [facility] Name: Alona Humphries Age: 23 yrs Sex: Female : 1995 Arrival Date: 12/09/2018 Time: 13:47 Bed 18 Private MD: None, None Diagnosis: Upper abdominal pain, unspecified Presentation: 12/09 13:50 Presenting complaint: Patient states: RUQ and right flank pain, pain with deep la1 breathing that started about 2 hour ago after eating biscuits and gravy, pt reports hx off gallstones about 4 years ago but they were not removed. Transition of care: patient was not received from another setting of care. Onset of symptoms was December 09, 2018. Risk Assessment: Do you want to hurt yourself or someone else? Patient reports no desire to harm self or others. Initial Sepsis Screen: Does the patient meet any 2 criteria? Yes Does the patient have a suspected source of infection? No. Patient's initial sepsis screen is negative. Care prior to arrival: None. 13:50 Method Of Arrival: Ambulatory la1 13:50 Acuity: PETE 3 la1 STRIKER OUT: 15:16 LMP N/A - pt reports "spotting" tw2 Historical: - Allergies: 13:50 No Known Allergies; la1 - Home Meds: 15:15 Vitamin Oral tab 1 tab once daily [Active]; tw2 - PMHx: 13:50 GALLSTONES; uterine fibroids; la1 - PSHx: 13:50 None; la1 - Immunization history:: Adult Immunizations up to date. - Social history:: Smoking status: Patient/guardian denies using tobacco. - Ebola Screening: : No symptoms or risks identified at this time. Screenin:14 Abuse screen: Denies threats or abuse. Nutritional screening: No deficits noted. tw2 Tuberculosis screening: No symptoms or risk factors identified. Fall Risk None identified. Assessment: 14:10 General: Appears uncomfortable, Behavior is cooperative, anxious. Pain: Complains of tw2 pain in right upper quadrant. Neuro: Level of Consciousness is awake, alert, obeys commands, Oriented to person, place, time, situation. Cardiovascular: Heart tones S1 S2 Capillary refill < 3 seconds Patient's skin is warm and dry. Respiratory: Airway is patent Respiratory effort is even, unlabored, Respiratory pattern is regular, symmetrical, Breath sounds are clear bilaterally. GI: Bowel sounds present X 4 quads. Abd is soft X 4 quads Reports lower abdominal pain, upper abdominal pain, nausea. : No signs and/or symptoms were reported regarding the genitourinary system. EENT: No signs and/or symptoms were reported regarding the EENT system. Derm: No signs and/or symptoms reported regarding the dermatologic system. Musculoskeletal: Range of motion: intact in all extremities. 14:56 Reassessment: Patient appears in no apparent distress at this time. Patient and/or tw2 family updated on plan of care and expected duration. Pain level reassessed. Patient is alert, oriented x 3, equal unlabored respirations, skin warm/dry/pink. Patient states feeling better. 15:46 Reassessment: Patient appears in no apparent distress at this time. Patient and/or tw2 family updated on plan of care and expected duration. Pain level reassessed. Patient is alert, oriented x 3, equal unlabored respirations, skin warm/dry/pink. Patient states feeling better. 16:28 Reassessment: Patient appears in no apparent distress at this time. Patient and/or iw family updated on plan of care and expected duration. Pain level reassessed. Patient is alert, oriented x 3, equal unlabored respirations, skin warm/dry/pink. pt advised that she is to be NPO until Dr. Dias comes to see her, awaiting room assignment, warm blankets given, family at bedside. 17:28 Reassessment: Patient appears in no apparent distress at this time. Patient and/or tw2 family updated on plan of care and expected duration. Pain level reassessed. Patient is alert, oriented x 3, equal unlabored respirations, skin warm/dry/pink. 18:28 Reassessment: Patient appears in no apparent distress at this time. Patient and/or tw2 family updated on plan of care and expected duration. Pain level reassessed. Patient is alert, oriented x 3, equal unlabored respirations, skin warm/dry/pink. Vital Signs: 13:53 Pulse 67; Resp 16; Temp 97.3; Pulse Ox 98% on R/A; Weight 66.68 kg; Height 5 ft. 3 in. la1 (160.02 cm); Pain 9/10; 13:54 BP 89 / 54; la1 14:23 BP 98 / 60; Pulse 70; Resp 19; Pulse Ox 98% on R/A; tw2 14:56 BP 107 / 75; Pulse 71; Resp 17; Pulse Ox 100% on R/A; Pain 5/10; tw2 15:45 BP 100 / 63; Pulse 81; Resp 17; Pulse Ox 97% on R/A; tw2 16:45 BP 107 / 75; Pulse 64; Resp 17; Pulse Ox 99% on R/A; tw2 17:45 BP 107 / 71; Pulse 73; Resp 17; Pulse Ox 100% on R/A; tw2 18:27 BP 110 / 77; Pulse 73; Resp 17; Pulse Ox 99% on R/A; tw2 13:53 Body Mass Index 26.04 (66.68 kg, 160.02 cm) la1 ED Course: 13:47 Patient arrived in ED. mr 13:47 None, None is Private Physician. mr 13:52 Triage completed. la1 13:52 [facility] Call[facility]C [facility] kb 13:52 Robert Miguel MD is Attending Physician. kb 13:52 Arm band placed on left wrist. la1 14:03 Bed in low position. Call light in reach. Adult w/ patient. Pulse ox on. NIBP on. Warm tw2 blanket given. 14:09 Daniella Lewis, KAHLIL is Primary Nurse. tw2 14:10 Inserted saline lock: 22 gauge in right antecubital area, using aseptic technique. tw2 Blood collected. 14:38 Ultrasound completed. Patient tolerated well. Notified TWX OPERATOR/PA nette. sg3 15:08 Italo Dias MD is Hospitalizing Provider. kb 15:14 US Abdomen Limited In Process Unspecified. EDMS 18:31 No provider procedures requiring assistance completed. Patient admitted, IV remains in tw2 place. Administered Medications: 14:15 Drug: Zofran 4 mg Route: IVP; Site: right antecubital; tw2 15:33 Follow up: Response: No adverse reaction; Nausea is decreased tw2 14:17 Drug: fentaNYL (PF) 50 mcg Route: IVP; Site: right antecubital; tw2 15:33 Follow up: Response: No adverse reaction; Pain is decreased tw2 14:22 Drug: NS 0.9% 1000 ml Route: IV; Rate: 1000 ml; Site: right antecubital; tw2 15:34 Follow up: Response: No adverse reaction; IV Status: Completed infusion; IV Intake: tw2 1000ml Intake: 15:34 IV: 1000ml; Total: 1000ml. tw2 Outcome: 15:08 Decision to Hospitalize by Provider. kb 18:10 Admitted to Med/surg accompanied by tech, via wheelchair, room 207, Report called to tw2 KAHLIL Palacios and his orientee 18:10 Condition: stable 18:10 Instructed on the need for admit. 18:32 Patient left the ED. tw2 Signatures: Dispatcher [employer] EDMS Nette Callahan, LABORER HOISTING-C LABORER HOISTING-CkKarin Leonard Irene RN KAHLIL iw Sukhjinder Jay RN RN la1 Daniella Lewis RN RN tw2 Moira Evans 3
--- NOTE | 2018-12-09 15:09 | EDPHYS ---
Physician Documentation [facility] Name: Alona Humphries Age: 23 yrs Sex: Female : 1995 Arrival Date: 12/09/2018 Time: 13:47 Bed 18 Private MD: None, None ED Physician Robert Miguel HPI: 12/09 15:01 This 23 yrs old Female presents to ER via Ambulatory with complaints of kb Abdominal Pain, Back Pain. 15:01 The patient presents with abdominal pain in the right upper quadrant. Onset: The kb symptoms/episode began/occurred today. The symptoms radiate to right back. Associated signs and symptoms: Pertinent positives: nausea and vomiting, Pertinent negatives: anorexia, blood in stools, chest pain, constipation, diarrhea, dysuria, fever, headache, hematuria, palpitations, shortness of breath, vaginal discharge, vomiting blood. The symptoms are described as achy. Modifying factors: The symptoms are alleviated by nothing, the symptoms are aggravated by food. Severity of pain: At its worst the pain was severe in the emergency department the pain is unchanged. The patient has experienced a previous episode, approximately 4 years ago. The patient has not recently seen a physician. 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 States she has had this pain twice in the past, 4 years ago, and was diagnosed with gallstones. Did not follow up with a surgeon at the time. Pain went away on its own. Pt is 6 weeks . 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 - Social history:: Smoking status: Patient/guardian denies using tobacco. - Ebola Screening: : No symptoms or risks identified at this time. ROS: 14:55 Constitutional: Negative for fever, chills, and weight loss, Cardiovascular: Negative kb for chest pain, palpitations, and edema, Respiratory: Negative for shortness of breath, cough, wheezing, and pleuritic chest pain, Back: Negative for injury and pain, : Negative for injury, bleeding, discharge, and swelling, MS/Extremity: Negative for injury and deformity, Skin: Negative for injury, rash, and discoloration, Neuro: Negative for headache, weakness, numbness, tingling, and seizure. 14:55 Abdomen/GI: Positive for abdominal pain, nausea and vomiting, Negative for diarrhea, constipation, abdominal cramps, abdominal distension, anorexia. Exam: 14:55 Constitutional: This is a well developed, well nourished patient who is awake, alert, kb and in no acute distress. Head/Face: Normocephalic, atraumatic. Chest/axilla: Normal chest wall appearance and motion. Nontender with no deformity. No lesions are appreciated. Cardiovascular: Regular rate and rhythm with a normal S1 and S2. No gallops, murmurs, or rubs. Normal PMI, no JVD. No pulse deficits. Respiratory: Lungs have equal breath sounds bilaterally, clear to auscultation and percussion. No rales, rhonchi or wheezes noted. No increased work of breathing, no retractions or nasal flaring. Skin: Warm, dry with normal turgor. Normal color with no rashes, no lesions, and no evidence of cellulitis. MS/ Extremity: Pulses equal, no cyanosis. Neurovascular intact. Full, normal range of motion. Neuro: Awake and alert, GCS 15, oriented to person, place, time, and situation. Cranial nerves II-XII grossly intact. Motor strength 5/5 in all extremities. Sensory grossly intact. Cerebellar exam normal. Normal gait. 14:55 Abdomen/GI: Inspection: abdomen appears normal, Bowel sounds: normal, in all quadrants, Palpation: soft, in all quadrants, severe abdominal tenderness, in the right upper quadrant. Vital Signs: 13:53 Pulse 67; Resp 16; Temp 97.3; Pulse Ox 98% on R/A; Weight 66.68 kg; Height 5 ft. 3 in. la1 (160.02 cm); Pain 9/10; 13:54 BP 89 / 54; la1 14:23 BP 98 / 60; Pulse 70; Resp 19; Pulse Ox 98% on R/A; tw2 14:56 BP 107 / 75; Pulse 71; Resp 17; Pulse Ox 100% on R/A; Pain 5/10; tw2 15:45 BP 100 / 63; Pulse 81; Resp 17; Pulse Ox 97% on R/A; tw2 16:45 BP 107 / 75; Pulse 64; Resp 17; Pulse Ox 99% on R/A; tw2 17:45 BP 107 / 71; Pulse 73; Resp 17; Pulse Ox 100% on R/A; tw2 18:27 BP 110 / 77; Pulse 73; Resp 17; Pulse Ox 99% on R/A; tw2 13:53 Body Mass Index 26.04 (66.68 kg, 160.02 cm) la1 MDM: 14:04 Patient medically screened. kb 15:00 Data reviewed: vital signs, nurses notes. Data interpreted: Pulse oximetry: on room air kb is 100 %. Interpretation: normal. Counseling: I had a detailed discussion with the patient and/or guardian regarding: the historical points, exam findings, and any diagnostic results supporting the discharge/admit diagnosis, lab results, radiology results, the need for further work-up and treatment in the hospital. 15:06 Physician consultation: Italo Dias MD was contacted at 15:07, regarding admission, to kb the medical/surgical unit. patient's condition, and will see patient in ED, shortly. 15:08 ED course: Pt has history of cholelithiasis, now no stones seen on US, but CBD dilated kb at 0.8 per US tech. Pt is 6 weeks and liver enzymes elevated. Choledocholithiasis likely. Will admit to hospitalist for GI consult for ERCP/MRCP and possible surgical consult. . 12/09 13:57 Order name: Basic Metabolic Panel; Complete Time: 14:49 kb 12/09 13:57 Order name: CBC with Diff; Complete Time: 14:42 kb 12/09 13:57 Order name: US Abdomen Limited; Complete Time: 15:43 kb 12/09 13:57 Order name: Hepatic Function; Complete Time: 14:49 kb 12/09 13:57 Order name: Lipase; Complete Time: 14:49 kb 12/09 13:57 Order name: IV Saline Lock; Complete Time: 14:23 kb 12/09 13:57 Order name: Labs collected and sent; Complete Time: 14:23 kb Administered Medications: 14:15 Drug: Zofran 4 mg Route: IVP; Site: right antecubital; tw2 15:33 Follow up: Response: No adverse reaction; Nausea is decreased tw2 14:17 Drug: fentaNYL (PF) 50 mcg Route: IVP; Site: right antecubital; tw2 15:33 Follow up: Response: No adverse reaction; Pain is decreased tw2 14:22 Drug: NS 0.9% 1000 ml Route: IV; Rate: 1000 ml; Site: right antecubital; tw2 15:34 Follow up: Response: No adverse reaction; IV Status: Completed infusion; IV Intake: tw2 1000ml Disposition: 18:49 Co-signature as Attending Physician, Robert Miguel MD. rn Disposition: 12/09/18 15:08 Hospitalization ordered by Italo Dias for Observation. Preliminary diagnosis is Upper abdominal pain, unspecified. - Bed requested for Telemetry/MedSurg (observation). - Status is Observation. tw2 - Condition is Stable. - Problem is new. - Symptoms are unchanged. UTI on Admission? No Signatures: Dispatcher [employer] EDMS Nette Callahan, DARIN-C CYBER SECURITY ARCHITECT-Maria Del Carmen Boudreaux RN RN Robert Palmer MD MD rn Attema, Lee, RN RN la1 Daniella Lewis RN RN tw2 Kathy Chatterjee Corrections: (The following items were deleted from the chart) 15:55 15:08 Hospitalization Ordered by Italo Dias MD for Observation. Preliminary diagnosis eb is Upper abdominal pain, unspecified. Bed requested for Telemetry/MedSurg (observation). Status is Observation. Condition is Stable. Problem is new. Symptoms are unchanged. UTI on Admission? No. kb 17:46 15:55 12/09/2018 15:08 Hospitalization Ordered by Italo Dias MD for Observation. dw Preliminary diagnosis is Upper abdominal pain, unspecified. Bed requested for Telemetry/MedSurg (observation). Status is Observation. Condition is Stable. Problem is new. Symptoms are unchanged. UTI on Admission? No. eb 18:32 17:46 12/09/2018 15:08 Hospitalization Ordered by Italo Dias MD for Observation. tw2 Preliminary diagnosis is Upper abdominal pain, unspecified. Bed requested for Telemetry/MedSurg (observation). Status is Observation. Condition is Stable. Problem is new. Symptoms are unchanged. UTI on Admission? No. dw
--- NOTE | 2018-12-09 15:37 | RAD REPORT ---
EXAM DESCRIPTION: US - Abdomen Exam Limited - 12/09/2018 3:14 pm CLINICAL HISTORY: Abdominal pain. Preliminary findings provided at the time of the study. COMPARISON: March 2014 FINDINGS: No gallstones identified. Minimal quantity of sludge is seen. There is no wall thickening or pericholecystic fluid. No common duct stone or biliary tree dilatation identified. Biliary tree is upper normal in size. IMPRESSION: Minimal sludge with no other gallbladder or biliary tree finding.
[2018-12-09] MEDS: NA CHLORIDE 0.9% 1,000 ML IV SCH (18:22)
[2018-12-09] MEDS ORDERED: IBUPROFEN 100 MG/5 ML UCUP ONE (18:25)
[2018-12-09] MEDS ORDERED: MORPHINE 2 MG/ML SYR IV PRN (19:32)
--- NOTE | 2018-12-09 19:37 | P.HP ---
Certification for Inpatient Patient admitted to: Observation With expected LOS: <2 Midnights Practitioner: I am a practitioner with admitting privileges, knowledge of patient current condition, hospital course, and medical plan of care. Services: Services provided to patient in accordance with Admission requirements found in Title 42 Section 412.3 of the Code of Federal Regulations Patient History Date of Service: 12/09/18 Reason for admission: Right upper quadrant History of Present Illness: This is a 23-year-old female with no past medical history who is 6 weeks admitted for right upper quadrant pain. Per patient, she has been having right upper quadrant pain that started after eating. Describes it as sharp, worse with breathing,radiating to the back and associated with nonbilious and nonbloody vomiting. She does report that she had similar symptoms for a half years ago when she was with her 1st child. She was found to have gallstones but did not have a cholecystectomy because her pain resolved with pain medication. She has not had any follow up after that. She does report starting a a more milk plus pill 2 days ago for increased milk production. The pain was not getting better and was associated with chills and therefore she came to the ER. In the ER, he was hemodynamically stable, her blood work was remarkable for AST of 63, ALT of 120, alk-phos of 137. Her lipase was normal. Her CBC and CMP were unremarkable. Her abdominal ultrasound showed minimal sludge, the biliary tree upper normal in size. She was admitted for further evaluation. At the time of my exam, she was alert oriented x3, hemodynamically stable and in no acute distress. Allergies No Known Allergies Allergy (Verified 10/31/18 07:16) Home medications list reviewed: Yes Home Medications: Pnv95/Ferrous Fumarate/FA [ Vitamin Tablet] 1 each PO DAILY 10/31/18 - Past Medical/Surgical History Diabetic: No -: - Family History Mother -: Hypertension, Diabetes - Social History Alcohol use: No CD- Drugs: No Caffeine use: Yes Review of Systems 10-point ROS is otherwise unremarkable Physical Examination - Vital Signs Temperature: 97.3 F Blood Pressure: 110/77 Pulse: 73 Respirations: 17 - Physical Exam General: Alert, In no apparent distress, Oriented x3 HEENT: Atraumatic, PERRLA, Mucous membr. moist/pink, EOMI, Sclerae nonicteric Neck: Supple, 2+ carotid pulse no bruit, No LAD, Without JVD or thyroid abnormality Respiratory: Clear to auscultation bilaterally, Normal air movement Cardiovascular: Regular rate/rhythm, Normal S1 S2 Gastrointestinal: Normal bowel sounds, Tenderness (Right upper and epigastric area) Musculoskeletal: No tenderness Integumentary: No rashes Neurological: Normal gait, Normal speech, Normal strength at 5/5 x4 extr, Normal tone, Normal affect Lymphatics: No axilla or inguinal lymphadenopathy - Studies Laboratory Data (last 24 hrs) 12/09/18 14:15: WBC 7.6, Hgb 14.7, Hct 44.4, Plt Count 334 12/09/18 14:15: Sodium 142, Potassium 3.6, BUN 10, Creatinine 0.69, Glucose 103 , Total Bilirubin 0.3, AST 63 H, ALT 120 H, Alkaline Phosphatase 137 H, Lipase 234 Assessment and Plan - Problems (Diagnosis) (1) Right upper quadrant pain Current Visit: Yes Status: Acute (2) History of gallstones Current Visit: Yes Status: Acute - Plan Admit to floor with tele. Keep NPO. Start IV fluids. GI consultation for possible ERCP/MRCP and further evaluation. IV pain control Monitor via labs. DVT prophylaxis: None at this time. Encouraged ambulation GI prophylaxis: Protonix Diet: NPO Disposition: Admit to floor, pending GI evaluation. - Advance Directives Does patient have a Living Will: No Does patient have a Durable POA for Healthcare: No
[2018-12-09] MEDS ORDERED: KCL 20 MEQ/100 mL IVPB 20 MEQ/100 ML BAG IV SCH (21:00)
[2018-12-09 23:12] VITALS: BMI 26.0
[2018-12-09 23:40] LABS: Urine Appearance CLEAR; Urine Bilirubin NEGATIVE (NEG); Urine Blood 1+ (NEG); Urine Color YELLOW; Urine Glucose NEGATIVE (NEG); Urine Microscopic Reflex ORDER UMIC; Urine Protein NEGATIVE (NEG); Urine pH 7.5 (5.0-7.0)
[2018-12-09 23:57] LABS: Urine Bacteria <20 /HPF (<20); Urine Culture Reflex Order REFLEXED; Urine RBC NONE SEEN /HPF (NONE SEEN)
[2018-12-10] MEDS: NA CHLORIDE 0.9% 1,000 ML IV SCH ×2 (04:54→14:22)
[2018-12-10 07:11] LABS: Absolute Monocytes 0.4 K/uL (0.1-1.3); Absolute Neutrophil 2.8 K/uL (1.8-8.0); Basophils % 0.8 % (0-1.3); Eosinophils % 4.6 % (0-4.4); Hematocrit 40.7 % (36.0-45.0); Lymphocytes % 36.8 % (15.3-44.8); MPV 7.9 fL (7.6-11.3); Monocytes % 7.8 % (3.3-12.3); RBC Red Blood Cell Count 4.71 M/uL (3.86-4.86)
[2018-12-10 07:24] LABS: ALT/SGPT 99 U/L (12-78); AST/SGOT 48 U/L (15-37); Albumin 3.3 g/dL (3.4-5.0); Alkaline Phosphatase 107 U/L (45-117); BUN Blood Urea Nitrogen 9 mg/dL (7-18); Bicarbonate 28 mmol/L (21-32); Bilirubin Direct < 0.1 mg/dL (0-0.2); Bilirubin Total 0.4 mg/dL (0.2-1.0); Glucose Level 87 mg/dL (74-106); Magnesium 1.9 mg/dL (1.8-2.4); Phosphorus 3.5 mg/dL (2.5-4.9); Potassium 3.9 mmol/L (3.5-5.1); Sodium Level 143 mmol/L (136-145)
[2018-12-10] MEDS ORDERED: POTASSIUM CL SA 10 MEQ TAB PO ONE (09:00)
[2018-12-10] MEDS ORDERED: KCL 20 MEQ/100 mL IVPB 20 MEQ/100 ML BAG IV SCH (10:00)
--- NOTE | 2018-12-10 18:03 | P.PN ---
Subjective Date of Service: 12/10/18 Chief Complaint: Right upper quadrant Subjective: Improving Patient seen and examined at bedside. at bedside. Chart reviewed and case discussed with nursing staff. Patient admitted for right upper quadrant pain. Patient denies any abdominal pain at this time, denies any nausea or vomiting. States she is doing well. She continues to be NPO. Review of Systems 10-point ROS is otherwise unremarkable Physical Examination - Vital Signs Temperature: 97.1 F Blood Pressure: 96/49 Pulse: 62 Respirations: 20 Pulse Ox (%): 99 - Physical Exam General: Alert, In no apparent distress Respiratory: Clear to auscultation bilaterally, Normal air movement Cardiovascular: Regular rate/rhythm, Normal S1 S2 Gastrointestinal: Tenderness (Mild, right upper quadrant) Assessment And Plan - Current Problems (Diagnosis) (1) Right upper quadrant pain Current Visit: Yes Status: Acute (2) History of gallstones Current Visit: Yes Status: Acute - Plan Continue IV fluids. Will go ahead and start regular diet at this time. She is pending a HIDA scan testing an EGD tomorrow therefore will be NPO after midnight. GI consultation. Recommendations appreciated. IV pain control Monitor via labs. DVT prophylaxis: None at this time. Encouraged ambulation GI prophylaxis: Protonix Diet: Regular diet at this time. NPO after midnight Disposition: Pending HIDA scan and EGD tomorrow.
[2018-12-11] MEDS: NA CHLORIDE 0.9% 1,000 ML IV SCH ×3 (04:23→23:30)
[2018-12-11 06:33] LABS: Absolute Lymphocytes (CBC) 2.2 K/uL (0.7-4.9); Absolute Monocytes 0.4 K/uL (0.1-1.3); Absolute Neutrophil 2.3 K/uL (1.8-8.0); Basophils % 0.8 % (0-1.3); Eosinophils % 7.3 % (0-4.4); Hematocrit 40.1 % (36.0-45.0); Lymphocytes % 40.9 % (15.3-44.8); Monocytes % 7.9 % (3.3-12.3); RBC Red Blood Cell Count 4.63 M/uL (3.86-4.86)
[2018-12-11 06:48] LABS: ALT/SGPT 96 U/L (12-78); AST/SGOT 50 U/L (15-37); Albumin 3.4 g/dL (3.4-5.0); Alkaline Phosphatase 118 U/L (45-117); BUN Blood Urea Nitrogen 9 mg/dL (7-18); Bicarbonate 26 mmol/L (21-32); Bilirubin Total 0.3 mg/dL (0.2-1.0); Glucose Level 94 mg/dL (74-106); Potassium 3.9 mmol/L (3.5-5.1); Protein, Total 7.2 g/dL (6.4-8.2); Sodium Level 141 mmol/L (136-145)
[2018-12-11] MEDS ORDERED: KCL 20 MEQ/100 mL IVPB 20 MEQ/100 ML BAG IV SCH (07:00)
[2018-12-11] MEDS: PRENATAL VITAMIN PO SCH (08:25)
--- NOTE | 2018-12-11 08:38 | RAD REPORT ---
EXAM DESCRIPTION: NM - Hepatobiliary System W/ Ph - 12/11/2018 8:29 am CLINICAL HISTORY: Abdominal pain TECHNIQUE: The patient was administered 6.5 millicuries technetium Choletec intravenous and images o f the abdomen obtained for 30 minutes. Patient was given 1.3 micrograms Kinevac intravenously and polina ges of gallbladder obtained for 30 minutes. FINDINGS: Liver demonstrates prompt radiotracer uptake. Activity is seen within the gallbladder by 50 minutes. Prompt uptake is seen within small bowel. After the administration of ice cream gallbladder ejection fraction equals 50% Patient was asymptomatic IMPRESSION: No evidence of acute cholecystitis Normal gallbladder ejection fraction 50%
[2018-12-11] MEDS ORDERED: Ringers Lactate 1,000 ML IV ONE (11:25)
[2018-12-11] MEDS ORDERED: PROPOFOL 200 MG/20 ML VIAL IV ONE ×2 (12:46)
[2018-12-11] MEDS ORDERED: LIDOCAINE 1% MPF 5 ML VIAL ONE (12:46)
--- NOTE | 2018-12-11 13:10 | ENDO RPT ---
[address], [address] EGD PROCEDURE REPORT EXAM DATE: 12/11/2018 PATIENT NAME: Alona Gallegos MR#: [id number] BIRTHDATE: 1995 ATTENDING: Torey Mckeon Dr STATUS: inpatient - 7 MIXER AND BLENDER: Yamini March and Leeann Barrios RN INDICATIONS: The patient is a 23 yr old Female here for an EGD due to right upper quadrant abdominal pain PROCEDURE PERFORMED: EGD with biopsy MEDICATIONS: Per Anesthesia. TOPICAL ANESTHETIC: none CONSENT: The patient understands the risks and benefits of the procedure and understands that these risks include, but are not limited to: sedation, allergic reaction, infection, perforation and/or bleeding. Alternative means of evaluation and treatment include, among others: physical exam, x-rays, and/or surgical intervention. The patient elects to proceed with this endoscopic procedure. DESCRIPTION OF PROCEDURE: During intra-op preparation period all mechanical medical equipment was checked for proper function. Hand hygiene and appropriate measures for infection prevention was taken. Procedure, possible complications, and alternatives including but not limited to the possibility of bleeding, perforation, tear, infection, sepsis, need for surgery, need for blood transfusion, and anesthesia related complications were explained to the patient. After the risks, benefits and alternatives of the procedure were thoroughly explained, Informed consent was verified, confirmed and timeout was successfully executed by the treatment team. The patient was placed in the left lateral position. The patient was anesthetized with topical anesthesia. Through the anesthetized oropharyngeal area, the scope was passed without any difficulty. The EG-[id number] ([id number]) and [id number] ([id number]) endoscope was introduced through the mouth and advanced to the third portion of the duodenum. Retroflexed views revealed a small hiatal hernia. The gastroscope was then slowly withdrawn and removed. A small hiatal hernia was found. Gastric biopsies obtained for non-ulcer dyspepsia. Mild notching of the small bowel folds was found in the descending duodenum. Multiple biopsies were obtained and sent to pathology. ADVERSE EVENTS: There were no complications. IMPRESSIONS: 1. Small hiatal hernia 2. Gastric biopsies obtained for non-ulcer dyspepsia 3. Mild notching of the small bowel folds in the descending duodenum, s/p biopsies RECOMMENDATIONS: 1. await biopsy results 2. acid suppression therapy 3. check celiac panel 4. MRCP (elevated liver chemistries, negative HIDA, U/S abdomen -> sludge in GB) REPEAT EXAM: Torey Mckeon Dr eSigned: Torey Mckeon Dr 12/11/2018 1:10 PM cc: CPT CODES: ICD9 CODES: PATIENT NAME: Alona Gallegos MR#: [id number]
--- NOTE | 2018-12-11 22:09 | PN ---
Date of Progress Note: 12/11/2018 Subjective: The patient is seen and examined. Chart reviewed and case discussed with RN. The patie nt had EGD done today, which showed a small hiatal hernia, mild notching of the small bowel folds in descending duodenum status post biopsies, and also with gastric biopsies obtained for non ulcer dyspe psia. The patient otherwise states her abdominal pain has improved. Medications: List reviewed. Physical Examination: Vital Signs: Temperature 98, heart rate 66, blood pressure 114/56, respirations 20, O2 96% on room a ir. General: Awake, alert, oriented x3. CV: S1, S2. Peripheral pulses present. Respiratory: Moving air well bilaterally. No wheezing or stridor. Gastrointestinal: Abdomen is soft. No tenderness to palpation. No guarding or rebound. Bowel soun ds positive. Extremities: No clubbing, cyanosis, or edema. No calf tenderness. Neuro: Cranial nerves 2 through 12 were intact grossly. No focal neurological deficits. Speech is normal. Laboratory Data: Immunology panel for celiac disease pending. Sodium 141, potassium 3.9, chloride 1 09, CO2 26, BUN 9, creatinine 0.62, glucose 94, calcium 8.4, AST 50, ALT 96, alkaline phosphatase 118 , total bilirubin 0.3. WBC 5.4, H and H 13.2 and 40.1, platelets 287, neutrophils 43%. Urine cultur e growing out mixed [place]. Hepatobiliary scan shows no evidence of acute cholecystitis. Normal gall bladder, ejection fraction at 50%. Assessment And Plan: 1.Right upper quadrant abdominal pain may be due to gallbladder sludge. MRCP has been ordered by Dr Keke Mckeon. The patient is now status post EGD. The patient has had biopsies taken. Mucosal abnormal ities from the duodenum were seen. 2.History of gallstones. 3.Small hiatal hernia. 4.Overweight. BMI 26. 5.Elevated liver enzymes secondary to above, plan MRCP. SA/MODL Voice ID: [id number] Report ID: [id number]
[2018-12-12 06:27] LABS: Absolute Lymphocytes (CBC) 2.3 K/uL (0.7-4.9); Absolute Monocytes 0.6 K/uL (0.1-1.3); Absolute Neutrophil 4.2 K/uL (1.8-8.0); Basophils % 0.7 % (0-1.3); Eosinophils % 5.1 % (0-4.4); Hematocrit 40.5 % (36.0-45.0); Lymphocytes % 30.3 % (15.3-44.8); MPV 7.9 fL (7.6-11.3); Monocytes % 8.1 % (3.3-12.3); RBC Red Blood Cell Count 4.68 M/uL (3.86-4.86)
[2018-12-12 07:00] LABS: ALT/SGPT 83 U/L (12-78); AST/SGOT 38 U/L (15-37); Albumin 3.3 g/dL (3.4-5.0); Alkaline Phosphatase 117 U/L (45-117); BUN Blood Urea Nitrogen 9 mg/dL (7-18); Bicarbonate 26 mmol/L (21-32); Bilirubin Total 0.4 mg/dL (0.2-1.0); Glucose Level 90 mg/dL (74-106); Potassium 4.1 mmol/L (3.5-5.1); Protein, Total 7.1 g/dL (6.4-8.2); Sodium Level 141 mmol/L (136-145)
[2018-12-12] MEDS: PRENATAL VITAMIN PO SCH (09:41)
[2018-12-12] MEDS: NA CHLORIDE 0.9% 1,000 ML IV SCH (09:42)
--- NOTE | 2018-12-12 10:49 | RAD REPORT ---
EXAM DESCRIPTION: MRI - Cholangiogram - 12/12/2018 9:25 am CLINICAL HISTORY: possible choledocholithiasis, RUQ pain, elev liver COMPARISON: Abdomen Exam Limited dated 12/09/2018; Hepatobiliary System W/ Ph dated 12/11/2018 FINDINGS: Three-dimensional MRCP was performed using maximum intensity projection reconstruction on the same work station. No intrahepatic biliary tree dilatation is seen. The common bile duct is normal caliber without evide nce of retained stone, stricture or mass. The pancreatic duct is not pathologically dilated. The gallbladder is unremarkable. Limited T2 sequences through the abdomen demonstrates no bulky adenopathy, significant free fluid or abscess. IMPRESSION: Negative MR cholangiogram.
[2018-12-12] MEDS ORDERED: PANTOPRAZOLE 40 MG INJ IVP SCH (12:03)
[2018-12-12] MEDS ORDERED: SODIUM CHLORIDE 0.9% 10ML INJ IV PRN (12:03)
[2018-12-12 12:22] VITALS: BP 100/61; TEMP 97.2
--- NOTE | 2018-12-12 12:22 | P.PN ---
Subjective Date of Service: 12/12/18 Chief Complaint: Right upper quadrant Subjective: Improving (No abdominal pain. She feels well, tolerating diet well. MRCP negative.) Review of Systems Unremarkable Physical Examination - Vital Signs Temperature: 97.2 F Blood Pressure: 100/61 Pulse: 74 Respirations: 14 Pulse Ox (%): 97 - Physical Exam General: Alert, In no apparent distress, Oriented x3, Cooperative HEENT: Atraumatic, Normocephalic, PERRLA, EOMI Neck: Supple Respiratory: Normal air movement Cardiovascular: Normal pulses Gastrointestinal: Soft and benign, No tenderness, No rebound, No guarding Neurological: Normal speech, Normal strength at 5/5 x4 extr Assessment And Plan - Current Problems (Diagnosis) (1) Elevated liver enzymes Current Visit: Yes Status: Acute (2) History of gallstones Current Visit: Yes Status: Acute (3) Right upper quadrant pain Current Visit: Yes Status: Acute Comment: Suspect patient is passing small gallstones / sludge periodically. MRCP negative but U/S shows sludge in gallbladder with resolving mild elevation in AST/ALT. In 2013 after 1st she had similar event - then with very mild elevation in lipase at ~ 54. She is 1 month post- now (2nd child). - Plan REC: 1) LF/LC diet 2) GI clinic f/u in 1-3 weeks
[2018-12-12 12:34] VITALS: O2SAT 98
--- NOTE | 2018-12-12 23:56 | DS ---
Date of Discharge: 12/12/2018 Long Term Acute Care Registered Nurse: Dr. Mckeon with GI. Procedures: Endoscopy on 12/11/2018 with findings of small hiatal hernia, non ulcer dyspepsia, mild notching of small bowel folds in the descending duodenum, status post biopsies. Discharge Diagnoses: 1.Right upper quadrant abdominal pain due to gallbladder sludge, MRCP negative, also secondary to dy spepsia. 2.Small hiatal hernia. 3.Overweight, BMI 26. 4.Elevated liver enzymes, MRCP negative. Hospital Course: The patient is a 23-year-old female, who was admitted to the hospital for right upp er quadrant abdominal pain. The patient had similar symptoms when she had her first child. The riaz ent had elevated liver enzymes. Her imaging studies showed some gallbladder sludge. HIDA scan was d one, showed no evidence of acute cholecystitis. Gallbladder ejection fraction was 50%. The patient was taken by Dr. Mckeon with GI for EGD, which showed some notching and biopsies were taken of the ga stric antrum and the duodenum. The patient had MRCP done, which was negative. The patient overall d id well. Her pain resolved. Her path specimen showed nonfocal specific acute inflammation, no malig zoila from the small bowel and the stomach showed mild chronic inactive gastritis, no Helicobacter py fran organisms, no evidence of malignancy. The patient was started on IV PPI. The patient did well. Her pain resolved. Immune studies were done for celiac disease. Urine culture grew out mixed kathleen a. The patient was then cleared for discharge as her symptoms had resolved. Workup was negative inc luding MRCP. She will need outpatient followup with GI to go over her celiac disease workup and repe at EGD in 6 to 8 weeks. Followup: Follow up with PCP in 2-3 days. Return to ER for worsening condition. Medications: As per medication reconciliation list. Diet: No fried or fatty foods. Activity: As tolerated. Physical Examination: General: Awake, alert, oriented, no acute distress. CV: S1, S2. No murmurs. Respiratory: Moving air well bilaterally. Abdomen: Soft, nontender, nondistended. Positive bowel sounds. Extremities: No clubbing, cyanosis, or edema. Neurologic: Nonfocal. SA/MODL Voice ID: [id number] Report ID: [id number]
[2018-12-16 14:55] LABS: Immunoglobulin A 327 mg/dL (81-463); Tissue Transglutaminase IgA Ab 2 U/mL (<4)
== END 2018-12-12 14:15 | disposition home or self-care (01) ==
LOC: ER 13:44 → ERHOLD 15:53 → 2ND 18:15
PROVIDERS: ADMIT Family Medicine; ATTEND Family Medicine
PROC: 0DB88ZX Excision of Small Intestine, Via Natural or Artificial Opening Endoscopic, Diagnostic (ICD-10-PCS; 2018-12-11)
PROC: 0DB68ZX Excision of Stomach, Via Natural or Artificial Opening Endoscopic, Diagnostic (ICD-10-PCS; principal; 2018-12-11 09:30)
DX: K82.8 Other specified diseases of gallbladder (principal); R10.13 Epigastric pain; K44.9 Diaphragmatic hernia without obstruction or gangrene; E66.3 Overweight; Z68.26 Body mass index [BMI] 26.0-26.9, adult; R74.8 Abnormal levels of other serum enzymes
CPT/HCPCS: 36415; 74181; 76705; 78227; 80048; 80053; 80076; 81003; 81015; 81025; 82248; 82784; 83516; 83690; 83735; 84100; 85025; 87086; 87088; 88305; 88312; 94760; 96361; 96374; 96375; 99285; A9537; C9113; G0378; J2270; J2405; J2704; J2805; J3010; J7030